=== PATIENT | male | born 1950 | race Caucasian/White ===

== ENCOUNTER 2016-10-15 21:39 | Emergency (ER) | payer BC ==
[~2016-10-15] VITALS: Ht 172.7 cm; Wt 62.1 kg
[2016-10-15 21:44] VITALS: BP 123/78
[2016-10-15] MEDS ORDERED: FLUORESCEIN SODIUM OPHTH 1 EA STRIP ONE (21:46)
[2016-10-15] MEDS ORDERED: TETRACAINE HCL/PF 0.5% UD 2 ML BOTTLE ONE (21:46)
[2016-10-15] MEDS ORDERED: TETRACAINE HCL/PF 0.5% UD 2 ML BOTTLE RIGHTEYE ONE (23:30)
[2016-10-15] MEDS ORDERED: FLUORESCEIN SODIUM OPHTH 1 EA STRIP OP ONE (23:30)
== END 2016-10-15 23:04 | disposition home or self-care (01) ==
LOC: ER 21:43
DX: H10.211 Acute toxic conjunctivitis, right eye (principal); I10 Essential (primary) hypertension
CPT/HCPCS: 99283; A4606; Z7610